=== PATIENT | female | born 1980 | race Caucasian/White ===

== ENCOUNTER 2019-05-18 08:18 | Emergency (ER) | payer OTHER ==
[~2019-05-18] VITALS: Ht 142.2 cm; Wt 73.6 kg
[2019-05-18 08:32] VITALS: BP 116/61
--- NOTE | 2019-05-18 09:34 | PHYS DOC ---
Past Medical History Past Medical History: Fibromyalgia, Migraines, Other Additional Past Medical Histor: SEASONAL ALLERGIES Past Surgical History: No Surgical History Alcohol Use: None Drug Use: None Adult General Chief Complaint Chief Complaint: COUGH HPI HPI Patient is a 38 year old nasal congestion, rhinorrhea, cough and sore throat the past several days. Patient reports yellow productive sputum. No fevers chills, shortness of breath, nausea vomiting or sweats. Denies history of asthma. She has a current smoker. [] Review of Systems Review of Systems Review symptoms as per history of present illness. All other review symptoms are negative. All other systems were reviewed and found to be within normal limits, except as documented in this note. Physical Exam Physical Exam Constitutional: Well developed, well nourished, no acute distress, non-toxic appearance. [] HENT: Normocephalic, atraumatic, bilateral external ears normal, oropharynx moist, nose, congestion with clear rhinorrhea.. [] Eyes: PERRLA, EOMI, conjunctiva normal. [] Neck: Normal range of motion, no tenderness, supple. [] Cardiovascular:Heart rate regular rhythm, no murmur. [] Lungs & Thorax: Bilateral breath sounds clear to auscultation. [] Abdomen: Bowel sounds normal, soft. [] Skin: Warm, dry, no erythema. [] Back: No tenderness. [] Extremities: No tenderness, no edema. [] Neurologic: Alert and oriented X 3, normal motor function, normal sensory function, no focal deficits noted. [] Psychologic: Affect normal, judgement normal, mood normal. [] Current Patient Data Vital Signs Vital Signs Date Time Temp Pulse Resp B/P (MAP) Pulse Ox O2 Delivery O2 Flow Rate FiO2 05/18/19 08:32 98.2 98 20 116/61 (79) 99 Room Air 98.2 EKG EKG [] Radiology/Procedures Radiology/Procedures [] Course & Med Decision Making Course & Med Decision Making Pertinent Labs and Imaging studies reviewed. (See chart for details) [Flulike illness without respiratory compromise.] Dragon Disclaimer Dragon Disclaimer This electronic medical record was generated, in whole or in part, using a voice recognition dictation system. Departure Departure Impression: Primary Impression: Influenza-like illness Disposition: HOME, SELF-CARE Condition: IMPROVED Referrals: NO PCP (PCP) Patient Instructions: Bronchitis Additional Instructions: Please take medications as described and ibuprofen for additional relief. Follow-up with your PCP early next week. Return to the ED if new or worsening symptoms Scripts Cephalexin (KEFLEX) 500 Mg Capsule 1 CAP PO TID for 10 Days, #30 CAP 0 Refills Prov: ARLETTE KOWALSKI DO 05/18/19 Guaifenesin/Dextromethorphan (MUCINEX DM ER 600-30 MG TABLET) 1 Each Tab.er.12h 1 TAB PO PRN BID PRN for cough and congestion for 14 Days, #28 TAB 0 Refills Prov: ARLETTE KOWALSKI DO 05/18/19 ARLETTE KOWALSKI DO May 18, 2019 09:34
[2019-05-18] MEDS ORDERED: CEPH-264 PO (09:44)
[2019-05-18] MEDS ORDERED: GUAI-108 PO (09:44)
== END 2019-05-18 09:51 | disposition home or self-care (01) ==
LOC: ER 08:18
DX: J11.1 Influenza due to unidentified influenza virus with other respiratory manifestations (principal); G43.909 Migraine, unspecified, not intractable, without status migrainosus; F17.200 Nicotine dependence, unspecified, uncomplicated
CPT/HCPCS: 99283